=== PATIENT | female | born 1970 | race Caucasian/White ===

== ENCOUNTER 2022-09-17 09:28 | Emergency (ER) | payer OTHER, SELFPAY ==
[2022-09-17 09:38] VITALS: BP 117/63; PULSE 97; RESP 16; TEMP 36.7; O2SAT 100
--- NOTE | 2022-09-17 09:53 | ED.GENADULT ---
HPI - General Adult General Chief complaint: Upper Respiratory Infection Stated complaint: sinus pressure, cough, congestion Source: patient Mode of arrival: ambulatory Limitations: no limitations History of Present Illness HPI narrative: Patient presents for evaluation of sick symptoms for last 2 days. Symptoms include sinus congestion, pressure and mucopurulent discharge from the nares. She has also had a cough which is productive of yellow/sputu. No fever, chills, nausea, vomiting, diarrhea, or SOB. No recent sick contacts to her knowledge. She does not smoke. She has tried several lylv-bvz-rvafgwa agents including DayQuil, NyQuil, Robitussin, Mucinex, allergy medication, Tylenol but her symptoms persist. Related Data Home Medications Medication Instructions Recorded Confirmed escitalopram oxalate 10 mg tablet mg 09/17/22 Allergies Allergy/AdvReac Type Severity Reaction Status Date / Time No Known Allergies Allergy Verified 09/17/22 09:37 Review of Systems Review of Systems: CONSTITUTIONAL: Denies fever, chills, or sweats. EYES: Denies visual changes, redness, or discharge. ENT: Reports sinus congestion, pressure, mucopurulent Discharge from the nares. CARDIOVASCULAR: Denies chest pain, palpitations, or edema. RESPIRATORY: Reports productive cough. Denies shortness of breath. GASTROINTESTINAL: Denies abdominal pain, nausea, vomiting, or diarrhea. GENITOURINARY: Denies dysuria or hematuria. SKIN: Denies rash or itching. MUSCULOSKELETAL: Denies back pain, joint pain, or myalgia. NEUROLOGIC: Denies headache, numbness, dizziness, or weakness. PSYCHIATRIC: Denies anxiety or depression. FOR[facility]LY [facility], [facility] Past Medical History Medical History History of non-Hodgkin's lymphoma Surgical History Surgical History No pertinent past surgical history Family History Family History Sibling Patient's brother is in good health Father Hypertension Malignant neoplasm of prostate Family history of lymphoma Family history of congestive heart failure Social History Social History Smoking status: Never smoker Alcohol intake: current Substance use: never Gender identity (if verbalized by the patient): Female Sexual Orientation (if Verbalized by the Patient): Straight or Heterosexual Spiritual care concerns: No Exam Narrative: GENERAL: Well-appearing, well-nourished, and in no acute distress. HEAD: Normocephalic, atraumatic. EYES: PERRLA and EOMI. ENT: There is thick mucopurulent discharge in the nares. There is bilateral maxillary and frontal sinus tenderness. Mucous membranes moist. Oropharynx without tonsillar hypertrophy exudate or other lesions. Bilateral TMs pearly wu nonbulging NECK: Supple. No adenopathy or masses. No carotid bruits or JVD CHEST: Clear to auscultation. No respiratory distress. No wheezes rales or rhonchi HEART: Regular rate and rhythm. No murmur heard. Normal peripheral pulses. ABDOMEN: Soft, nontender, nondistended, normal active bowel sounds. EXTREMITIES: Normal range of motion. No edema. SKIN: Warm, dry, no rash. NEURO: No focal deficits. Alert and oriented x3. PSYCH: Normal mood and affect. Course Course Emergency Course: This is a 52-year-old female who presented for evaluation of sinus symptoms. Based on duration of time for which she has been symptomatic in nature of the discharge, she meets criteria for acute bacterial rhinosinusitis. Will treat with Augmentin. Increase hydration. Czwp-efb-yeuayov agents to be continued as needed. Follow up outpatient this coming week. Go to the ER for worsening symptoms. Patient is in agreement with plan of care. Level of Care: Express Care Visit Vital Signs Vital signs: Vital Sign
== END 2022-09-17 09:58 | disposition home or self-care (01) ==
PROVIDERS: Emergency Provider Nurse Practitioner; PCP Internal Medicine
DX: J32.9 Chronic sinusitis, unspecified (principal); Z85.72 Personal history of non-Hodgkin lymphomas
CPT/HCPCS: 99203; G0463

== ENCOUNTER 2022-10-04 08:17 | Emergency (ER) | payer OTHER, SELFPAY ==
--- NOTE | ~2022-10-04 | XR_ITS ---
XR chest 2V DATE: 10/04/2022 09:03 INDICATION: Cough and burning in chest for one month TECHNIQUE: 2 views COMPARISON: None FINDINGS: Normal heart size. No hilar or mediastinal enlargement. No pulmonary infiltrate or consolid ation, pleural effusion or pulmonary vascular congestion or pneumothorax. Status post cholecystectomy. IMPRESSION: No active cardiopulmonary disease Reviewed, dictated and finalized at location B. GLASS DESIGNER
[2022-10-04 08:30] VITALS: BP 121/76; PULSE 97; RESP 16; TEMP 36.7; O2SAT 100
--- NOTE | 2022-10-04 08:43 | ED.URI ---
HPI - URI/Sore Throat General Chief Complaint: Upper Respiratory Infection Stated Complaint: CHEST PAIN/COUGH/CONGESITON/SINUS PRESSURE Time Seen by Provider: 10/04/22 08:43 Source: patient, RN notes reviewed and old records reviewed Mode of arrival: ambulatory Limitations: no limitations History of Present Illness HPI Narrative: 52 year old female [facility] with 2 day history of right sided sinus pressure, acute cough which is non productive and is worse at night. patient reports that chest feels tight with cough and milner. patient reports that she was treated for sinus infection on 09/17/2022 with Augmentin and she completed all doses. Patient reports feeling better for awhile after started antibiotics then symptoms have returned. Patient had history of Non-Hodgkin Lymphoma in 2013 and in remission. Patient has been taking Mucinex for her symptoms. MD elicited complaint: cough, nasal congestion, sinus pain and other (chest tightness with cough) Pertinent past history: sinusitis and other (Non-Hodgskin's Lymhoma remission) Onset (ago): day(s) (2) Able to tolerate fluids by mouth: Yes Treatments prior to arrival: antibiotics (09/17/2022 completed) Related Data Home Medications Medication Instructions Recorded Confirmed escitalopram oxalate 10 mg tablet 10 mg PO DAILY 09/17/22 10/04/22 Allergies Allergy/AdvReac Type Severity Reaction Status Date / Time No Known Allergies Allergy Verified 10/04/22 08:49 Review of Systems Review of Systems: CONSTITUTIONAL: Denies malaise, chills, sweats, or fever. EYES: Denies visual changes, redness, or discharge. ENT: Reports rhinorrhea, congestion,right facial sinus pain,no otalgia no sore throat,hoarseness CARDIOVASCULAR: Denies chest pain, palpitations, or edema. RESPIRATORY: Reports acute cough.? Denies dyspnea. GASTROINTESTINAL: Denies abdominal pain, nausea, vomiting, diarrhea SKIN: Denies rash or itching. MUSCULOSKELETAL: Denies myalgia. NEUROLOGIC: Frontal headache. All systems reviewed & are unremarkable except as noted in HPI and below PMFSH Past Medical History Medical History (Updated 10/04/22 @ 09:20 by Jolanta Nevarez NP) History of non-Hodgkin's lymphoma Surgical History Surgical History (Updated 10/04/22 @ 08:55 by Jolanta Nevarez NP) History of tonsillectomy Family History Family History Sibling Patient's brother is in good health Father Hypertension Malignant neoplasm of prostate Family history of lymphoma Family history of congestive heart failure Social History Social History Smoking status: Never smoker Alcohol intake: current Substance use: never Gender identity (if verbalized by the patient): Female Sexual Orientation (if Verbalized by the Patient): Straight or Heterosexual Spiritual care concerns: No Comments At time of signature, agree with nursing past medical, surgical, social and family history. There is no relevant family history pertinent to the presenting complaint Exam Narrative: GENERAL: Well-appearing, well-nourished, and in no acute distress. HEAD: Normocephalic EYES: PERRLA, conjunctivae clear ENT: Nares clear, turbinates edematous and erythematous, clear discharge. Mucous membranes moist. TM pearly wu with dull light reflex bilaterally; no tragal tenderness. Oropharynx erythematous without lesions. Tonsils not present and without exudate, no drooling, hoarseness, no trismus, uvula midline, post nasal drainage NECK: Supple. No lymphadenopathy CHEST: Clear to auscultation, breath sounds equal. No wheezing, rhonchi, rales, or stridor. No respiratory distress, speaks in full sentences.SAO2 100% on room air HEART: Regular rate and rhythm. No murmur heard. SKIN: Warm, dry, no rash. NEURO: Alert and oriented x3. PSYCH: Normal mood and affect Course Course
== END 2022-10-04 09:29 | disposition home or self-care (01) ==
PROVIDERS: Emergency Provider Registered Nurse; PCP Internal Medicine
DX: J06.9 Acute upper respiratory infection, unspecified (principal); Z85.72 Personal history of non-Hodgkin lymphomas
CPT/HCPCS: 71046; 99213; G0463

== ENCOUNTER 2022-12-01 08:00 | Outpatient (CLI) | payer OTHER, SELFPAY ==
[2022-12-01 11:25] LABS: Basophils Percent Auto 0.6 % (0.2-1.2); Eosinophils Absolute Auto 0.1 K/mm3 (0-0.3); Eosinophils Percent Auto 1.9 % (0-4.4); Hematocrit 39.6 % (37.0-47.0); Hemoglobin 13.2 g/dL (12.0-15.0); Immature Granulocyte Absolute 0.01 K/mm3 (0.00-0.031); Immature Granulocyte Percent A 0.2 % (0-0.5); Lymphocytes Absolute Auto 0.89 K/mm3 (0.9-3.2); Lymphocytes Percent Auto 17.1 % (18.3-44.2); Mean Corpuscular HGB Conc 33.3 g/dl (32-36); Mean Corpuscular Hemoglobin 29.6 pg (26-34); Mean Corpuscular Volume 88.8 fl (80-100); Mean Platelet Volume 9.8 fl (7.4-10.4); Monocytes Absolute Auto 0.6 K/mm3 (0.1-0.6); Monocytes Percent Auto 10.9 % (2.6-8.5); Neutrophils Absolute Auto 3.6 K/mm3 (1.3-6.7); Neutrophils Percent Auto 69.3 % (45.5-73.1); Platelet Count Result 222 k/mm3 (150-375); Red Blood Count 4.46 M/mm3 (4.2-5.4); White Blood Count 5.2 K/mm3 (4.5-10.0)
[2022-12-01 11:36] LABS: Alanine Aminotransferase 39 U/L (6-35); Albumin Level 4.4 g/dL (3.5-5.1); Alkaline Phosphatase 80 U/L (38-126); Anion Gap 3 mmol/L (8-16); Aspartate Amino Transferase 50 U/L (14-36); Bilirubin,Total 0.5 mg/dL (0.2-1.3); Blood Urea Nitrogen 10 mg/dL (7-17); Calcium 8.6 mg/dL (8.4-10.2); Carbon Dioxide 27 mmol/L (22-30); Chloride 106 mmol/L (98-107); Cholesterol 165 mg/dL (0-200); Estimated Glomerular Filt Rate > 60; Glucose 83 mg/dL (65-110); HDL Direct 40 mg/dL; Potassium 3.8 mmol/L (3.4-5.0); Sodium 136 mmol/L (137-145); Triglycerides 201 mg/dL (<150)
[2022-12-01 11:47] LABS: LDL Cholesterol Direct 70 mg/dL
[2022-12-01 19:53] LABS: Vitamin D 25 Hydroxy 32.4 ng/mL
== END 2022-12-01 08:01 | disposition home or self-care (01) ==
LOC: ANHGOSHLAB 08:02
PROVIDERS: PCP Internal Medicine; Visit Provider Nurse Practitioner
DX: E55.9 Vitamin D deficiency, unspecified (principal); Z13.29 Encounter for screening for other suspected endocrine disorder; Z13.220 Encounter for screening for lipoid disorders
CPT/HCPCS: 36415; 80053; 80061; 82306; 85025

== ENCOUNTER 2024-12-16 17:11 | Emergency (ER) | payer OTHER, SELFPAY ==
--- NOTE | ~2024-12-16 | XR_ITS ---
EXAMINATION: XR chest 2V DATE: 12/16/2024 17:43 INDICATION: Abnormal lung sounds, right lower lobe. TECHNIQUE: Frontal and lateral views of the chest were obtained. COMPARISON: Chest 2 views 10/04/2022, CT abdomen and pelvis 11/12/2015 FINDINGS: There is no pneumonia, pleural effusion, or pneumothorax. The heart size is normal. Surgica l clips in the right upper quadrant are likely from cholecystectomy. IMPRESSION: 1. No acute cardiopulmonary disease. Reviewed, dictated and finalized at location A. ICE TESTER
--- NOTE | 2024-12-16 17:18 | ED.URI ---
HPI - URI/Sore Throat General Chief Complaint: Upper Respiratory Infection Stated Complaint: HEAD COLD/COUGH/CHEST Time Seen by Provider: 12/16/24 17:18 Source: patient, RN notes reviewed and old records reviewed Mode of arrival: ambulatory Limitations: no limitations History of Present Illness HPI Narrative: Patient presents with complaints of 1 week of sinus pressure and cough. She denies any fever, chills, sweats. She reports that she does have some pain with cough. Cough is minimally productive. She is complaining of some ear pain. She has been taking fqpk-jba-tcptahf medications with minimal relief. She is not any obvious distress. Related Data Allergies Allergy/AdvReac Type Severity Reaction Status Date / Time No Known Allergies Allergy Verified 12/16/24 17:16 Review of Systems Review of Systems: All systems reviewed & are unremarkable except as noted in HPI and below Constitutional: Constitutional: Reports no additional constitutional complaints and Reports lethargy ENT: Reports system reviewed and no additional complaints, except as documented, Reports otalgia and Reports nasal discharge Cardiovascular: Cardiovascular: Reports no additional cardiovascular complaints Respiratory: Respiratory: Reports no additional respiratory complaints, Reports cough and Reports wheezing (at night) Gastrointestinal: Gastrointestinal: Reports no additional gastrointestinal complaints [facility] Past Medical History Medical History (Updated 12/17/24 @ 00:01 by Jenise Vann) Hx of non-Hodgkin's lymphoma Surgical History Surgical History History of tonsillectomy Family History Family History (Updated 06/02/24 @ 12:57 by Anni Mcdermott CMA) Sibling Patient's brother is in good health Father Hypertension Malignant neoplasm of prostate Family history of lymphoma Family history of congestive heart failure Social History Social History Smoking status: Never smoker Alcohol intake: current Substance use: never Lack of Transportation: No Lack of Food: Never True Current Housing: I Have Housing Concerned About Future Housing: No Difficulty Paying Gas/Electric Bills: No Difficulty Paying for Meds: No Currently Unemployed: No Education: Associate Degree Difficulty w/ Childcare or Family Care: No Living arrangements: with family Gender identity (if verbalized by the patient): Female Sexual Orientation (if Verbalized by the Patient): Straight or Heterosexual Spiritual care concerns: No Comments At the time of my signature, I reviewed and agree with the nursing past medical, surgical, social, and family history. There is no relevant family history pertinent to the patient complaint. Exam Const: General: cooperative, no acute distress, alert and awake Orientation/consciousness: oriented to person, oriented to place and oriented to time HENMT: Head: normal to inspection Ears: TM abnormal with fluid behind the TM bilateral Mouth: Yes moist mucous membranes Resp: Effort & Inspection: normal respiratory effort and able to speak in complete sentences Auscultation: clear to auscultation bilaterally, no crackles, no rales, no rhonchi and no wheezes Cardio: Palpation: normal PMI Rate: regular rate Rhythm: regular rhythm Heart sounds: S1 normal heart sound present and S2 normal heart sound present Neuro: General: oriented to person, oriented to place and oriented to time Cranial nerves: Yes CN's II-XII intact bilaterally Psych: Appearance: grossly normal Thought process: Normal thought process present Insight: Good insight present (Psych) Judgement: Good judgement present (Psych) Course Course Level of Care: Express Care Visit Vital Signs Vital signs: Vital Signs Oxygen Delivery Room Air 12/16/24 17:16 Temperature 98 F 12/16/24 17:20 Pulse Rate 81 12/16/24 17:20 Respiratory Rate 16 12/16/24 17:20 Blood Pressure 139/69 12/16/24 17:20 Pulse Oximetry 100 12/16/24 17:20 Oxygen Delivery Room Air 12/16/24 17:16 Reviewed MDM - URI/Sore Throat MDM Narrative Medical decision making narrative: Reassuring physical exam. History and exam consistent with bronchitis. Start bronchodilators, prednisone burst, cough suppressant. Patient nontoxic appearing in no distress. Discharge instructions reviewed with patient, as well as provided in writing per nursing staff. The instructions also include specific and strict return/GO TO THE ER as well as f/u information. All questions have been answered, and the patient deny any further questions with discharge and discharge plan. Some parts of this dictation were generated by voice recognition software and may contain typographical and/or grammatical inaccuracies. Differential Diagnosis Differential diagnosis: Likely upper respiratory infection, otitis media, sinusitis, viral infection and bronchitis Medical Records Attestation: I reviewed the patient's medical records. Imaging Data Attestation: I personally reviewed and interpreted this imaging study as follows: My impression: no acute findings Radiologist's impression: Express [facility] [address] [facility] [place] [address] XRay Report Signed Patient: Marifer Corona : 1970 MR#: [id number] Age: 54 Acct:[id number] Loc: [facility] ADM Date: 12/16/24Attending Dr: Ordering Physician: Elidia Medrano FNP Date of Service: 12/16/24 Procedure(s): XR chest 2V Accession Number(s): [id number] cc: Elidia Medrano FNP; Guzman Chu DO~ EXAMINATION: XR chest 2V DATE: 12/16/2024 17:43 INDICATION: Abnormal lung sounds, right lower lobe. TECHNIQUE: Frontal and lateral views of the chest were obtained. COMPARISON: Chest 2 views 10/04/2022, CT abdomen and pelvis 11/12/2015 FINDINGS: There is no pneumonia, pleural effusion, or pneumothorax. The heart size is normal. Surgical clips in the right upper quadrant are likely from cholecystectomy. IMPRESSION: 1. No acute cardiopulmonary disease. Reviewed, dictated and finalized at location A. OR HEALTH EDUCATOR Please be advised this is a medical document. It is intended for unnd-ie-qyhp communication. It is written in medical language and may contain unfamiliar abbreviations or verbiage. Medical documents are intended to carry relevant information, facts as evident, and the clinical opinion of the practitioner at the time of the encounter. This report may have been done utilizing a voice recognition system. Attempts have been made to correct errors. However, there may be uncorrected grammatical, spelling, and recognition errors present. The file time of this note does not necessarily represent the time of service. Dictated By: Kuldeep Chavez MD 12/16/24 1746 Signed By: <Electronically signed by Kuldeep Chavez MD in OV> 12/16/24 1746 Discharge Plan Discharge Clinical Impression: Bronchitis Patient Disposition: Home, Self-Care Condition: Stable Instructions: Antibiotic Form, Acute Bronchitis (ED) Additional Instructions: Take medications as prescribed. Follow with primary care provider. Emergency department for new or worse symptoms Patient Language: Algerian Prescriptions: New prednisone 50 mg tablet 50 mg PO DAILY Qty: 5 0RF albuterol sulfate [Ventolin HFA] 90 mcg/actuation HFA aerosol inhaler 2 puff inhalation QID PRN (Reason: shortness of breath or wheezing) Qty: 8.5 0RF benzonatate 200 mg capsule 200 mg PO TID PRN (Reason: cough) Qty: 30 0RF No Action escitalopram oxalate 10 mg tablet 10 mg PO DAILY Qty: 90 3RF Follow-up/Referrals: Guzman Chu DO [Primary Care Provider] - 2 Weeks Stand Alone Forms: Work/School Release IP Time of Disposition: 17:54
[2024-12-16 17:20] VITALS: BP 139/69; PULSE 81; RESP 16; TEMP 36.6; O2SAT 100
== END 2024-12-16 17:56 | disposition home or self-care (01) ==
PROVIDERS: Emergency Provider Nurse Practitioner Family; PCP Internal Medicine
DX: J40 Bronchitis, not specified as acute or chronic (principal); Z85.72 Personal history of non-Hodgkin lymphomas
CPT/HCPCS: 71046; 99213; G0463

== ENCOUNTER 2025-06-12 08:21 | Outpatient (CLI) | payer OTHER, SELFPAY ==
--- OUTSIDE RECORDS SUMMARY | 2025-06-12 08:26 | XMS_ITS | Encounter Summary ---
Author Organization [facility] Address [address] [place] [address] Phone Care Team Providers Care Extrusion Engineer Name Role Phone Guzman Chu DO Primary Care Provider [phone] Anuja Guzman MD Unavailable [phone] Encounter Details Date Type Department Care Team (Latest Contact Info) Description 02/10/2019 Orders Only [facility] Scanning, Provider Social History Tobacco Use Types Packs/Day Years Used Date Smoking Tobacco: Never Smokeless Tobacco: Never Alcohol Use Standard Drinks/Week Comments Yes 0 (1 standard drink = 0.6 oz pur e alcohol) few drinks/month Comments Unknown Sex and Gender Information Value Date Recorded Sex Assigned at Not on file Legal Sex Female 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 Gender Identity Not on file Sexual Orientation Not on file documented as of this encounter Plan of Treatment Not on file documented as of this encounter Procedures Procedure Name Priority Date/Time Associated Diagnosis Comments GI - RESULT 02/10/2019 documented in this encounter Results * GI - RESULT (02/10/2019) Anatomical Region Laterality Modality Other us Provider Scanning Edited Result - Final documented in this encounter Visit Diagnoses Not on filedocumented in this encounter Care Teams Extrusion Engineer Relationship Specialty Start Date End Date Guzman Chu DO PCP - General 12/05/16 Anuja Guzman MD Medical Oncologist/Sandwich Wrapper Medical Oncology 12/02/20 documented as of this encounter
--- OUTSIDE RECORDS SUMMARY | 2025-06-12 08:26 | XMS_ITS ---
Author Organization [facility] Address [address] [place] [address] Care Team Providers Care Tube Winder Name Role Phone Guzman Chu DO Primary Care Provider [phone] Anuja Guzman MD Unavailable [phone] Active Problems Problem Noted Date Diagnosed Date Anxiety 05/18/2021 Follicular non-Hodgkin's lymphoma 06/04/2014 Current Treatment and Therapy Plans No current plan information found. Past Treatment and Therapy Plans No past plan information found. 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
--- OUTSIDE RECORDS SUMMARY | 2025-06-12 08:26 | XMS_ITS | Clinical Summary ---
Author Organization [facility] Address [address] [place] [address] Phone Care Team Providers Care Cage Cashier Name Role Phone Guzman Chu DO Primary Care Provider Immunizations Immunization Administration Dates Next Due INFLUENZA VACCINE QUADRIVALENT 3 YR UP PF IM Influenza Vaccine Quad Split 3+ Yrs Im 5 Influenza Vaccine Split 3+ Yrs PF IM 07/02/2014 Social History Tobacco Use Types Packs/Day Years Used Date Smoking Tobacco: Never Assessed Comments Unknown Sex and Gender Information Value Date Recorded Sex Assigned at Not on file Legal Sex Female 2:20 PM CDT Gender Identity Not on file Sexual Orientation Not on file Plan of Treatment Health Maintenance Due Date Last Done Comments DTAP/TDAP/TD VACCINES (1 - Tdap) 02/01/1988 HEPATITIS B VACCINES (1 of 3 - 19+ 3-dose series) 02/01/1988 HPV/Cotest (21-29) 1990 CERVICAL CANCER SCREENING 1999 HPV/Cotest (30-65) 1999 PAP SMEAR 1999 BREAST CANCER SCREENING 2009 COLORECTAL SCREENING 2014 Colorectal Cancer Screening 2014 FIT-DNA Q 3 years 2014 FIT/FOBT Q 1 year 2014 Flex Sig/CT Colonography Q 5 years 2014 ZOSTER VACCINE (1 of 2) 2019 INFLUENZA VACCINE (#1) 2025 6, 07/27/2015, 07/02/2014 Care Teams Cage Cashier Relationship Specialty Start Date End Date Guzman Chu DO PCP - General Internal Medicine 12/04/16
--- OUTSIDE RECORDS SUMMARY | 2025-06-12 08:26 | XMS_ITS | Clinical Summary ---
Author Organization [facility] Address [address] [facility] [place] [address] Care Team Providers Care Quality Assurance Supervisor Body Name Role Phone Unavailable Primary Care Provider Unavailabl e Source Comments [facility],non-owned Affiliates and Associated Physician Practices is amultiple site organization consisting of ambulatory clinics and hospital sitesin [place], [place], [place] and [place]. This disclosure is being madepursuant to the Care Everywhere program and may not contain all information available regarding this patient. 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 Gender Identity Not on file Sexual Orientation Not on file Plan of Treatment Health Maintenance Due Date Last Done Comments COLOGUARD (AGES 45-75) - COL ON CA SCREENING 1970 COLON MONITORING 1970 COLONOSCOPY - COLON CA SCREENING 1969 CT COLONOGRAPHY - COLON CA SCREENING 1970 Colorectal Cancer Screening 1970 FIT - COLON CA SCREENING 1970 FLEX SIG - COLON CA SCREENING 1970 LIPID TESTING 1970 MAMMOGRAM 1970 HIV SCREENING 02/01/1984 HEPATITIS C SCREENING 01/27/1987 DTAP/TDAP/TD VACCINES (1 - Tdap) 02/01/1988 HEPATITIS B VACCINE (1 of 3 - 19+ 3-dose series) 02/01/1988 PAP SMEAR 1990 PNEUMOCOCCAL VACCINE 50+ (1 of 1 - PCV) 2019 ZOSTER VACCINE (1 of 2) 2019 COVID-19 VACCINE (1 - 2023-2 5 season) 2024 DEPRESSION SCREENING 10/15/2024 INFLUENZA VACCINE (#1) 2025 HIB VACCINE Aged Out No longer eligi ble based on patient's age to complete this topic HPV VACCINE Aged Out No longer eligi ble based on patient's age to complete this topic MENINGOCOCCAL (Group B) VACC INE SHARED DECISION-MAKING Aged Out No longer eligibl e based on patient's age to complete this topic MENINGOCOCCAL GROUPS A/C/Y/W VACCINE Aged Out No longer eligible b ased on patient's age to complete this topic Insurance CARE [id number] [place] [address] CARE
--- OUTSIDE RECORDS SUMMARY | 2025-06-12 08:26 | XMS_ITS | Clinical Summary ---
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 8 Overview (05/29/2018): Added automatically from request for surgery [id number] Encounters Date Type Department Care Team Description 05/20/2025 2:58 PM CDT - 05/20/2025 11:59 PM CDT Hospital Encounter [facility] [id number] [place] [address] Screening mammogram, encounter for Discharge Disposition: Discharge to home or self care from Last 3 Months Immunizations Immunization Administration Dates Next Due Influenza, Quadrivalent, Lalita l Culture-based MDCK, Preservative Free, Antibiotic Free, Intramuscular 07/23/2023,07/17/2020,07/31/2018 Influenza, Quadrivalent, Spl it, Intramuscular 09/02/2019,07/27/2015 Influenza, Quadrivalent, Spl it, Preservative Free, Intramuscular 09/04/2022,09/02/2019,08/03/2016 Influenza, Trivalent, Preser vative Free, Intramuscular 08/15/2017,07/02/2014 Influenza, Unspecified 06/02/2014 Pfizer SARS-CoV-2 Monovalent Vaccination (12+ Yrs) PURPLE 01/04/2021,12/15/2020 Tdap 06/02/2024 ZOSTER Recombinant 07/23/2023,05/07/2023 Surgical History Surgery Date Site/Laterality Comments GALLBLADDER SURGERY Medical History Medical History Date Comments Cancer (HCC) History of chemotherapy 09/2016 Non-Hodg kins Lymphoma Follicular lymphoma Palindromic rheumatism Family History Medical History Relation Name Comments Cancer Father Heart attack Father Heart disease Father Hypertension Father Lung cancer Father Family history of lung cancer - (Added by TW Conv) Lymphoma Father Family history of lymphoma - (Added by TW Conv) Prostate cancer Father Family histo ry of prostate cancer - (Added by TW Conv) Sleep apnea Father Lung cancer Maternal Grandfather Family history of lung cancer - Relation: Grandfather (Added by TW Conv) Diabetes Mother Hypertension Mother Sleep apnea Mother Heart attack Other Family history of myocardial infarction - Relation: Grandmother (Added by TW Conv) Relation Name Status Comments Father Maternal Grandfather Mother Other Social History Tobacco Use Types Packs/Day Years Used Date Smoking Tobacco: Never Smokeless Tobacco: Never Alcohol Use Standard Drinks/Week Comments Yes 0 (1 standard drink = 0.6 oz pur e alcohol) few drinks/month Comments No Sex and Gender Information Value Date Recorded Sex Assigned at Not on file Legal Sex Female 6:53 AM REHABILITATION SERVICES DIRECTOR Gender Identity Not on file Sexual Orientation Not on file Obstetrics History Last Filed Vital Signs Vital Sign Reading Time Taken Comments Blood Pressure 117/78 06/18/2024 7:50 AM CDT Pulse 87 06/18/2024 7:50 AM CDT Temperature 36.4 C (97.5 F) 06/18/2024 7:48 AM CDT Respiratory Rate 18 06/18/2024 7:48 AM CDT Oxygen Saturation 99% 06/18/2024 7:50 AM CDT Inhaled Oxygen Concentration - - Weight 72.4 kg (159 lb 9.8 oz) 05/20/2025 3:35 P M CDT Height 167.7 cm (5' 6.02) 05/20/2025 3:35 PM CD T Body Mass Index 25.74 05/20/2025 3:35 PM CDT Plan of Treatment Health Maintenance Due Date Last Done Comments Cervical Cancer Screening 1969 Colon Cancer Screening-Colonoscopy 1969 Depression Screening 1969 Hepatitis B Screening 1987 Regular Well Visit/Exam 18-64 1987 Pneumococcal vaccine <65 (1 of 2 - PCV) 02/01/1988 Covid-19 Vaccine (3 - 2023-2 5 season) 2024 01/04/2021, 12/15/2020 Influenza Vaccine (#1) 2025 , 09/04/2022, 07/17/2020, Additional history exists Breast Cancer Screening-Mammogram 05/20/2026 05/20/2025, 03/17/2024, 02/05/2023, Additional history exists DTaP/Tdap/Td Vaccine (2 - Td or Tdap) 06/02/2034 06/02/2024 Hepatitis C Screening Completed 06/10/2014 Zoster Vaccine Completed 07/23/2023, 05/07/2023 Procedures Procedure Name Priority Date/Time Associated Diagnosis Comments SCREENING MAMMOGRAM BILATERAL W KASHIF Schedule Routine, Read Routine (OP Routine) 05/20/2025 3:30 PM CDT Screening mammogram, encounter for SERUM HEPATITIS C AB Routine 06/10/2014 11:44 AM CDT from Last 3 Months or Most Recently Relevant to Health Maintenance Results * Screening Mammogram Bilateral W Kashif (05/20/2025 3:30 PM CDT) Anatomical Region Laterality Modality Breast Bilateral Mammography Impressions 05/20/2025 4:11 PM CDT Bilateral No evidence of malignancy in either breast. OVERALL BI-RADS FINAL ASSESSMENT: 1 - Negative RECOMMENDATION: Recommend bilateral annual screening mammography. If supplemental screening is desired for heterogeneously dense breast tissue, consider breast MRI every 1-2 years. If breast MRI cannot be performed, contrast-enhanced mammography is an alternative. Narrative 05/20/2025 4:11 PM CDT EXAMINATION: Screening Mammogram Bilateral W Kashif: 05/20/2025 COMPARISON: Relevant prior studies available at the time of interpretation were reviewed, including the most recent mammogram on: 03/17/2024. TECHNIQUE: Mammography was performed with 2D and 3D digital breast tomosynthesis (DBT) images. CAD was utilized. BREAST PARENCHYMAL COMPOSITION: The breasts are heterogeneously dense, which may obscure small masses. FINDINGS: No suspicious mass, calcification, or architectural distortion is seen in either breast. There has been no suspicious interval change. us Self Screening Mammogram IMG MAMMO PROCEDURES Fi nal Result * Serum Hepatitis C ab (06/10/2014 11:44 AM CDT) HCV ab Negative NEG HISTORICAL RESULTS Serum 06/10/2014 11:4 4 AM CDT Narrative HISTORICAL RESULTS - 06/11/2014 6:03 AM CDT Interpretive Data If confirmation is required, call Laboratory Customer Service to request sample to be sent to [facility] for Hepatitis C Virus (HCV) RNA Detection and Quantitation by Real-Time Reverse Manager Community-PCR (RT-PCR). Current interpretive data was last revised on 2012 Clarice [facility] BLOOD ORDERABLE S Final Result HISTORICAL RESULTS from Last 3 Months or Most Recently Relevant to Health Maintenance [place] [address] [facility] CHOICE [employer] [facility] HMO/PPO Address: [address] [place] [address] [facility] HMO/PPO Address: [address] [place] [address] CHO[employer] [facility] HMO/PPO Address: [address] [place] [address] Care Teams Answering Service Telephone Operator Relationship Specialty Start Date End Date Guzman Chu DO PCP - General 12/05/16 Anuja Guzman MD Medical Oncologist/Charge Master Coordinator Medical Oncology 12/02/20
--- OUTSIDE RECORDS SUMMARY | 2025-06-12 08:26 | XMS_ITS | Encounter Summary ---
Author Organization [facility] Address [address] [place] [address] Care Team Providers Care Decorator Street And Building Name Role Phone Unavailable Primary Care Provider Unavailabl e Encounter Details Date Type Department Care Team (Late st Contact Info) Description 12/08/2024 Lab Requisition [facility] - DermPath Lab [address] [facility] [place] [address] Claire Berry MD [address] [facility] [address] [place] [address] Social History Tobacco Use Types Packs/Day Years Used Date Smoking Tobacco: Never Assessed Comments Unknown Sex and Gender Information Value Date Recorded Sex Assigned at Not on file Legal Sex Female 3:46 PM DIRECTOR DATA PROCESSING Gender Identity Not on file Sexual Orientation Not on file documented as of this encounter Plan of Treatment Not on file documented as of this encounter Procedures Procedure Name Priority Date/Time Associated Diagnosis Comments DERMATOPATHOLOGY Routine 12/08/2024 8:28 AM DIRECTOR DATA PROCESSING documented in this encounter Results * DERMATOPATHOLOGY (12/08/2024 8:28 AM DIRECTOR DATA PROCESSING) Case Report Dermatopathology Report Case: [id number] Authorizing Provider: Claire Berry MD Collected: 12/08/2024 08:28 AM Ordering Location: [facility] Physician [facility] - Received: 12/08/2024 01:24 PM DermPath Lab Pathologist: Terri Stokes MD Specimen: Skin, left post shoulder 11:51 AM DIRECTOR DATA PROCESSING DERMATOPATHOLOGY LABORATORY Final Diagnosis Specimen A. SKIN, left post shoulder: BENIGN VERRUCOUS KERATOSIS, INFLAMED (L82.1) 11:51 AM DIRECTOR DATA PROCESSING DERMATOPATHOLOGY LABORATORY at 1151 DIRECTOR DATA PROCESSING Clinical History DF, R/O NMSC; Irritated 11:51 AM [facility] DERMATOPATHOLOGY LABORATORY Gross Description Specimen A: Received is one formalin filled container labeled with the patient's name and designated left post shoulder. The specimen consists of a shave biopsy measuring 8x7x1 mm. Jar 0. 11:51 AM [facility] DERMATOPATHOLOGY LABORATORY Microscopic Description Specimen A. SKIN, left post shoulder: Sections show hyperkeratosis, papillomatosis, hypergranulosis, and acanthosis. Inflammatory cells are present within the dermis. These histological findings can be seen in a verruca vulgaris or a seborrheic keratosis. 11:51 AM [facility] DERMATOPATHOLOGY LABORATORY Disclaimer An external and internal positive and negative controls are appropriate for the histochemical, immunohistochemical and immunofluorescence stain(s) in this case (if any), except where stated explicitly. The performance characteristics of the stain(s) cited in this report were developed and its performance characteristic determined by the Dermatopathology Laboratory at [facility], directed by Dr. Manasa Stokes. These tests need not be, and therefore are not, approved by the [place] Food and Drug Administration. The tests are used for clinical purposes. Billing Codes Specimen Charges Stain Charges 86328 1 11:51 AM [facility] DERMATOPATHOLOGY LABORATORY Embedded Images 11:51 AM [facility] DERMATOPATHOLOGY LABORATORY Pathology/Cytolo gy TISSUE SPECIMEN FROM SKIN / Unknown 12/08/2024 8:28 AM DIRECTOR DATA PROCESSING 12/08/2024 1:24 PM [facility] Claire Berry MD LAB - PATHOLOGY/CYTOLOGY OR DERABLES Final Result DERMATOPATHOLOGY LABORATORY [facility] - Department of Dermatology [address], [address] [phone] documented in this encounter Visit Diagnoses Not on filedocumented in this encounter
[2025-06-12 18:22] LABS: Hematocrit 42.2 % (37.0-47.0); Hemoglobin 13.6 g/dL (12.0-15.0); Immature Granulocyte Percent A 0.2 % (0-0.5); Lymphocytes Absolute Auto 1.69 K/mm3 (0.9-3.2); Mean Corpuscular HGB Conc 32.2 g/dl (32-36); Mean Corpuscular Hemoglobin 29.3 pg (26-34); Mean Corpuscular Volume 90.9 fl (80-100); Nucleated Red Blood Cells Absolute Auto 0.000 K/mm3 (0.0-0.012); Nucleated Red Blood Cells Perc 0.0 % (0.0-0.2); Platelet Count Result 236 k/mm3 (150-375); Red Blood Count 4.64 M/mm3 (4.2-5.4); White Blood Count 6.2 K/mm3 (4.5-10.0)
[2025-06-12 19:17] LABS: Alanine Aminotransferase 16 U/L (6-35); Albumin Level 4.5 g/dL (3.5-5.1); Alkaline Phosphatase 54 U/L (38-126); Anion Gap 8 mmol/L (4-12); Aspartate Amino Transferase 28 U/L (14-36); Bilirubin,Total 0.6 mg/dL (0.2-1.3); Blood Urea Nitrogen 13 mg/dL (7-17); Calcium 9.6 mg/dL (8.4-10.2); Carbon Dioxide 30 mmol/L (22-30); Chloride 102 mmol/L (98-107); Cholesterol 171 mg/dL (0-200); Estimated Glomerular Filt Rate > 60; Glucose 67 mg/dL (65-110); HDL Direct 53 mg/dL; Potassium 3.8 mmol/L (3.4-5.0); Sodium 140 mmol/L (137-145); Total Protein 7.1 g/dL (6.3-8.2); Triglycerides 156 mg/dL (<150)
== END 2025-06-12 08:22 | disposition home or self-care (01) ==
LOC: ANHGOSHLAB 08:22
PROVIDERS: PCP Nurse Practitioner; Visit Provider Nurse Practitioner
DX: Z13.220 Encounter for screening for lipoid disorders (principal); E55.9 Vitamin D deficiency, unspecified; Z13.29 Encounter for screening for other suspected endocrine disorder
CPT/HCPCS: 36415; 80053; 80061; 82306; 85025